=== PATIENT | male | born 1980 | race Caucasian/White ===

== ENCOUNTER 2020-06-15 10:15 | Outpatient (CLI) | payer OTHER, SELFPAY ==
--- NOTE | ~2020-06-15 | XR_ITS ---
EXAMINATION: XR abdomen/kub 1V EXAM DATE: 06/15/2020 10:44 INDICATION: R10.9 - Unspecified abdominal pain; rt flank pain TECHNIQUE: Frontal projection of the upper abdomen, frontal projection lower abdomen/pelvis for inter pretation. There is no prior study for comparison. FINDINGS: There is expected amount of colonic stool and gas. No small bowel dilation, nonobstructiv e bowel gas pattern. There are no suspicious calcifications identified. There is no organomegaly suspected. The bones are unremarkable. IMPRESSION: Unremarkable abdomen x-ray exam. Reviewed, dictated and finalized at location B. [employer]
== END 2020-06-15 10:16 ==
PROVIDERS: PCP Family Medicine; Visit Provider Physician Assistant
DX: R10.9 Unspecified abdominal pain (principal)
CPT/HCPCS: 74018

== ENCOUNTER 2020-09-11 13:16 | Outpatient (CLI) | payer OTHER, SELFPAY ==
--- NOTE | ~2020-09-11 | CT_ITS ---
EXAMINATION: CT abdomen pelvis wo con EXAM DATE: 09/11/2020 13:50 INDICATION: Renal colic right side and testicular pain. TECHNIQUE: Spiral CT of the abdomen and pelvis was performed without contrast. Axial, coronal and sag ittal images were reviewed. The dose-length product (DLP) for this examination was 1078.71 mGy-cm. The exposure was tailored according to patient size (auto mA exposure control), and iterative reconst ruction (ASIR) was used as additional dose reduction technique. Comparison is made to prior examinati on from 02/12/2010. FINDINGS: There is no nephrolithiasis or hydronephrosis. The prostate is unremarkable. The bladder is unremarkable. The liver, spleen, adrenal glands and pancreas are unremarkable. Gallbladder is u nremarkable. No biliary obstruction. There is no retroperitoneal or pelvic lymphadenopathy. No in guinal hernia. There are no findings to suggest appendicitis. Small duodenal diverticulum. The stomach and small bow el are unremarkable. There is expected amount of colonic stool. No free intraperitoneal gas. The heart is normal in size. There are no pericardial or pleural effusions. The lung bases are unremar kable. There are no osteoblastic or osteolytic lesions identified. IMPRESSION: 1. No nephrolithiasis, hydronephrosis or acute intra-abdominal findings. Reviewed, dictated and finalized at location B. [facility]
--- NOTE | ~2020-09-11 | US_ITS ---
EXAMINATION: US scrotum doppler EXAM DATE: 09/11/2020 13:46 INDICATION: Right testicular pain. TECHNIQUE: Multiple grayscale and Doppler images of the testicles and scrotum were obtained bilateral ly. There is no prior study for comparison. FINDINGS: Right testicle measures 5.0 x 4.0 x 4.2 cm and is morphologically normal. Low resistance Doppler uriel w confirmed. The epididymis is unremarkable. There is no hydrocele or varicocele. Left testicle measures 5.2 x 3.1 x 4.0 cm and is morphologically normal. Low resistance Doppler flow confirmed. The epididymis is unremarkable. There is no hydrocele or varicocele. IMPRESSION: 1. Unremarkable testicular/scrotal ultrasound exam. Reviewed, dictated and finalized at location B. N COATER
== END 2020-09-11 13:17 ==
PROVIDERS: Visit Provider Urology
DX: N23 Unspecified renal colic (principal); N50.811 Right testicular pain
CPT/HCPCS: 74176; 76870; 93976

== ENCOUNTER 2021-12-26 18:18 | Emergency (ER) | payer OTHER, SELFPAY ==
--- NOTE | 2021-12-26 18:24 | ED.URI ---
HPI - URI/Sore Throat General Chief Complaint: Upper Respiratory Infection Stated Complaint: sore throat Time Seen by Provider: 12/26/21 18:25 Source: patient and RN notes reviewed Mode of arrival: ambulatory Limitations: no limitations History of Present Illness HPI Narrative: 41-year-old male presented for complaint of right throat/tonsil pain, onset yesterday. Endorses pain with talking and swallowing. Denies associated cough, shortness of breath, sinus pressure, nausea, vomiting, fevers or chills. He has used ibuprofen and warm salt water gargles. He denies sick contacts. He has boosted for COVID and vaccinated for flu. MD elicited complaint: sore throat Related Data Allergies Allergy/AdvReac Type Severity Reaction Status Date / Time No Known Allergies Verified 12/26/21 18:24 Review of Systems Review of Systems: CONSTITUTIONAL: Endorses malaise, chills, sweats, fever EYES: Denies visual changes, redness, or discharge ENT: Denies rhinorrhea, congestion, sinus pain, otalgia CARDIOVASCULAR: Denies chest pain, palpitations, edema RESPIRATORY: Reports cough, post nasal drainage. Denies dyspnea GASTROINTESTINAL: Denies abdominal pain, nausea, vomiting, diarrhea SKIN: Denies rash or itching MUSCULOSKELETAL: Endorses myalgia NEUROLOGIC: Denies headache PMFSH Past Medical History Medical History Attention deficit disorder Social History Social History Smoking status: Never smoker Second hand tobacco smoke exposure: No Smoking end date: 08/11/12 Alcohol intake: current Drinks per week: 5 Substance use: never Substance use type: does not use Exam Narrative: GENERAL: appears in pain, nontoxic HEAD: Normocephalic EYES: conjunctivae clear ENT: Mucous membranes moist. TM pearly dinh with dull light reflex bilaterally; no tragal tenderness. Oropharynx erythematous without lesions or exudate, Right tonsillar swelling 2+ no drooling, no hoarseness, no trismus, uvula midline. No tripod positioning, muffled voice, soft palate or pharyngeal wall bulging NECK: Supple. No lymphadenopathy CHEST: Clear to auscultation, breath sounds equal. No wheezing, rhonchi, rales, or stridor. No respiratory distress, speaks in full sentences. HEART: Regular rate and rhythm. No murmur heard. SKIN: Warm, dry, no rash. NEURO: Alert and oriented x3. PSYCH: Normal mood and affect Course Course Emergency Course: Patient is aware of diagnosis, understands and agrees to treatment plan. Anticipatory guidance given. Patient agrees to follow-up as directed and is aware of reasons to seek care at the emergency department. Portions of this record may have been created with voice recognition software Level of Care: Express Care Visit Vital Signs Vital signs: Vital Signs Temperature 98.6 F 12/26/21 18:26 Pulse Rate 114 H 12/26/21 18:26 Respiratory Rate 16 12/26/21 18:26 Blood Pressure 138/94 H 12/26/21 18:26 Pulse Oximetry 100 12/26/21 18:26 Temperature 98.6 F 12/26/21 18:26 Pulse Rate 114 H 12/26/21 18:26 Respiratory Rate 16 12/26/21 18:26 Blood Pressure 138/94 H 12/26/21 18:26 Pulse Oximetry 100 12/26/21 18:26 reviewed MDM - URI/Sore Throat MDM Narrative Medical decision making narrative: strep negative steroid IM Pt declines imaging at this time. He is advised on supportive treatment and close monitoring of symptoms. They are aware of s/s to go to the ER, v/u. Differential Diagnosis Differential diagnosis: Likely upper respiratory infection, sinusitis and viral infection Lab Data Labs: Strep Screen Presumptive Negative *(Reference Range: Negative)* Discharge Plan Discharge Clinical Impression: Acute tonsillitis Qualifiers: Pharyngitis/tonsillitis etiology: unspecified etiology Qualified Code(s): J03.90 - Acute ton
[2021-12-26 18:26] VITALS: BP 138/94; PULSE 114; RESP 16; TEMP 37; O2SAT 100
[2021-12-26] MEDS: methylPREDNISolone SOD SUCC 125 MG VIAL IM (18:36)
== END 2021-12-26 19:01 | disposition home or self-care (01) ==
PROVIDERS: Emergency Provider Nurse Practitioner Family
DX: J03.90 Acute tonsillitis, unspecified (principal); F98.8 Other specified behavioral and emotional disorders with onset usually occurring in childhood and adolescence; Z87.891 Personal history of nicotine dependence
CPT/HCPCS: 87081; 87880; 96372; 99213; G0463; J2930

== ENCOUNTER 2023-01-09 15:45 | Emergency (ER) | payer OTHER, SELFPAY ==
[2023-01-09] VITALS (10 sets, daily range): BP systolic 132–145; BP diastolic 93–102; PULSE 83–115; RESP 16–18; TEMP 36.9–37; O2SAT 96–99
--- NOTE | ~2023-01-09 | US_ITS ---
EXAMINATION: US scrotum doppler DATE: 01/09/2023 17:49 INDICATION: Right testicular pain TECHNIQUE: Testicular sonogram utilizing grayscale and Doppler COMPARISON: None. FINDINGS: The right testis measures 5.7 x 2.7 x 3.1 cm. The left testis measures 1.6 x 2.7 x 3.9 cm. Symmetric normal grayscale appearance to both testes. There is normal vascular flow to both testes. The right e pididymis is normal with normal vascular flow. The left epididymis is normal with normal vascular uriel w. There is no varicocele or hydrocele. IMPRESSION: 1. Normal scrotal ultrasound. Reviewed, dictated and finalized at location A.
--- NOTE | ~2023-01-09 | CT_ITS ---
EXAMINATION: CT abdomen pelvis w con DATE: 01/09/2023 17:34 INDICATION: Right lower quadrant pain radiating to the right testicle. TECHNIQUE: Computed tomography (CT) of the abdomen and pelvis was performed with 100 mL Omnipaque-350 intravenous contrast. Automated exposure control and iterative reconstruction technique were employe d. The dose-length product was 1570.40 mGy-cm. COMPARISON: None FINDINGS: Mild dependent atelectasis in the bilateral lower lobes. Heart size is normal. No pericardial or pleu ral effusion. Liver, gallbladder, spleen, pancreas, bilateral adrenal glands and right kidney are nor mal. 5 mm left renal cyst. Small gas-filled duodenal diverticulum arising from the third portion of t he duodenum and positioned along the posterior uncinate process of the pancreas. Bowels including the appendix are normal. Bladder is normal. No free intraperitoneal gas or fluid. No pathologically enla rged abdominal or pelvic lymphadenopathy. Mild to moderate lumbar and lower thoracic spondylosis. IMPRESSION: 1. No acute intra-abdominal/pelvic process. Normal appendix. Reviewed, dictated and finalized at location A.
[2023-01-09 16:09] LABS: Basophils Absolute Auto 0.1 K/mm3 (0.0-0.1); Basophils Percent Auto 0.5 % (0.2-1.2); Eosinophils Absolute Auto 0.1 K/mm3 (0-0.3); Eosinophils Percent Auto 0.6 % (0-4.4); Hematocrit 47.6 % (42.0-52.0); Hemoglobin 16.6 g/dL (14.0-18.0); Immature Granulocyte Absolute 0.04 K/mm3 (0.00-0.031); Immature Granulocyte Percent A 0.4 % (0-0.5); Lymphocytes Absolute Auto 2.44 K/mm3 (0.9-3.2); Lymphocytes Percent Auto 24.9 % (18.3-44.2); Mean Corpuscular HGB Conc 34.9 g/dl (32-36); Mean Corpuscular Hemoglobin 29.3 pg (26-34); Mean Corpuscular Volume 84.1 fl (80-100); Mean Platelet Volume 9.9 fl (7.4-10.4); Monocytes Absolute Auto 0.7 K/mm3 (0.1-0.6); Monocytes Percent Auto 7.3 % (2.6-8.5); Neutrophils Absolute Auto 6.5 K/mm3 (1.3-6.7); Neutrophils Percent Auto 66.3 % (45.5-73.1); Platelet Count Result 377 k/mm3 (150-375); Red Blood Count 5.66 M/mm3 (4.6-6.20); Red Cell Distribution Width 12.3 % (11.5-14.5); White Blood Count 9.8 K/mm3 (4.5-10.0)
--- NOTE | 2023-01-09 16:18 | PC.NURSE ---
Pt states a month prior he had lower back pain that radiated into his right testicle and the pain resolved. States about a week ago he then started having lower right sided abdominal pain that also resolved. States he awoke this morning and had pain in his lower right back, lower right abdomen, and in his right testicle. States the onset was sudden. Denies any heavy lifting. Denies any urinary symptoms, but states urinating does seem to relieve the pain. States he had one small BM yesterday, but no BM today. Denies any n/v but does have appetite changes.
[2023-01-09 16:20] LABS: Alanine Aminotransferase 50 U/L (6-50); Albumin Level 4.9 g/dL (3.5-5.1); Alkaline Phosphatase 68 U/L (38-126); Anion Gap 8 mmol/L (8-16); Aspartate Amino Transferase 30 U/L (17-59); Bilirubin,Total 0.7 mg/dL (0.2-1.3); Blood Urea Nitrogen 15 mg/dL (9-20); Calcium 9.4 mg/dL (8.4-10.2); Carbon Dioxide 29 mmol/L (22-30); Chloride 101 mmol/L (98-107); Estimated CRCL calculation 98 ml/min; Estimated Glomerular Filt Rate > 60; Glucose 104 mg/dL (65-110); Lipase 40 U/L (23-300); Potassium 3.9 mmol/L (3.4-5.0); Sodium 138 mmol/L (137-145)
[2023-01-09 16:47] LABS: Appearance Urine Clear (Clear); Bacteria Urine None Seen /hpf; Bilirubin Urine Negative (Negative); Blood Urine Trace (Negative); Color Urine Dark Yellow (Yellow); Glucose Urine UA Negative (Negative); Hyaline Casts Urine Present /lpf; Ketones Urine Trace mg/dL (Negative); Leukocyte Esterase Ur Negative LEU/UL (Negative); Nitrate Urine Negative (Negative); Protein Urine Negative (Negative); Specific Grav Ur 1.022 (1.001-1.035); Squamous Epithelial Cell Urine None seen /hpf (Few); Urobilinogen Urine 0.2 mg/dL (<2.0); WBC Urine 0-5 /hpf; pH Urine 5.5 (5.0-9.0)
[2023-01-09 16:50] LABS: Add Urine Microscopic? YES
--- NOTE | 2023-01-09 17:10 | ED.GENADULT ---
HPI - General Adult General Chief complaint: Abdominal Pain Stated complaint: RLQ pain Time Seen by Provider: 01/09/23 16:16 Source: patient Mode of arrival: ambulatory Limitations: no limitations History of Present Illness HPI narrative: This is a 42-year-old male presents to the ED with chief complaint of right-sided abdominal pain ongoing for the past month. He states it has been worse in the past day. Reports an 8 out of 10 pain now. States before it was out of 1 or 2 at baseline. Reports pain is located in the right lower quadrant and radiates into the right flank and into the right groin. Denies fevers, chills, nausea, vomiting, problems with bowel movements, urinary symptoms, any concern for STDs. Denies any abdominal surgical history. Related Data Allergies Allergy/AdvReac Type Severity Reaction Status Date / Time No Known Allergies Allergy Unverified 08/23/22 09:16 Review of Systems Review of Systems: CONSTITUTIONAL: Denies fever, chills, or sweats. EYES: Denies visual changes, redness, or discharge. ENT: Denies rhinorrhea, congestion, sore throat, or otalgia. CARDIOVASCULAR: Denies chest pain, palpitations, or edema. RESPIRATORY: Denies cough or dyspnea. GASTROINTESTINAL: Denies abdominal pain, nausea, vomiting, or diarrhea. GENITOURINARY: Denies dysuria or hematuria. SKIN: Denies rash or itching. MUSCULOSKELETAL: Denies back pain, joint pain, or myalgia. NEUROLOGIC: Denies headache, numbness, dizziness, or weakness. PSYCHIATRIC: Denies anxiety or depression. [facility] Past Medical History Medical History Attention deficit disorder Social History Social History (Updated 08/23/22 @ 09:23 by Tennille Khan PA-C) Smoking status: Never smoker Second hand tobacco smoke exposure: No Smoking end date: 08/11/12 Alcohol intake: former Substance use: never Substance use type: does not use Lack of Transportation: No Lack of Food: Never True Current Housing: I Have Housing Concerned About Future Housing: No Difficulty Paying Gas/Electric Bills: No Difficulty Paying for Meds: No Currently Unemployed: No Education: High School Diploma/GED Difficulty w/ Childcare or Family Care: No Exam Narrative: GENERAL: Well-appearing, well-nourished, and in no acute distress. Resting comfortably. HEAD: Normocephalic, atraumatic. EYES: PERRLA and EOMI. ENT: Nares clear, no rhinorrhea or epistaxis. Mucous membranes moist. Oropharynx without tonsillar hypertrophy exudate or other lesions. NECK: Supple. No adenopathy or masses. CHEST: No respiratory distress. Clear to auscultation. No wheezes rales or rhonchi HEART: Regular rate and rhythm. No murmur heard. Normal peripheral pulses. ABDOMEN: Mild tenderness to the right lower quadrant. Soft, otherwise nontender, nondistended, normal active bowel sounds. Negative peritoneal signs. Negative flank tenderness bilaterally. MSK: Normal range of motion. No edema. SKIN: Warm, dry, no rash. NEURO: Alert and oriented x3. No focal deficits. PSYCH: Normal mood and affect. Course Course Emergency Course: 1715: Patient is declining pain meds at this time. Vital Signs Vital signs: Vital Signs Temperature 98.4 F 01/09/23 15:54 Pulse Rate 115 H 01/09/23 15:54 Respiratory Rate 18 01/09/23 15:54 Blood Pressure 145/93 H 01/09/23 15:54 Pulse Oximetry 99 01/09/23 15:54 Oxygen Delivery Room Air 01/09/23 15:54 Temperature 98.4 F 01/09/23 15:54 Pulse Rate 115 H 01/09/23 15:54 Respiratory Rate 18 01/09/23 15:54 Blood Pressure 145/93 H 01/09/23 15:54 Pulse Oximetry 99 01/09/23 15:54 Oxygen Delivery Room Air 01/09/23 15:54 Medical Decision Making MDM Narrative Medical decision making narrative: This is a 42-year-old male who presents to the ED with chief complaint of right-sided abdominal pain for 1 month and worse today. Vitals are stable. In
[2023-01-09] MEDS: SODIUM CHLORIDE 0.9% IV 1,000 ML 999 ML IV CONT (17:58)
[2023-01-09] MEDS: KETOROLAC 15 MG/ML VIAL (*BKC) IV PUSH (18:43)
== END 2023-01-09 19:22 | disposition home or self-care (01) ==
PROVIDERS: Emergency Medicine; Emergency Provider Physician Assistant; PCP Family Medicine
DX: R10.31 Right lower quadrant pain (principal); F98.8 Other specified behavioral and emotional disorders with onset usually occurring in childhood and adolescence
CPT/HCPCS: 36415; 74177; 76870; 80053; 81001; 83690; 85025; 93976; 96361; 96374; 96375; 99284; J0131; J1885; J7030; Q9967